=== PATIENT | female | born 1960 | race Caucasian/White ===

== ENCOUNTER 2018-02-06 12:26 | Emergency (ER) | payer OTHER ==
[2018-02-06 12:34] VITALS: RESP 18
--- NOTE | 2018-02-06 13:34 | ED ---
Skin/Abscess/FB HPI - General Source: patient, RN notes reviewed, old records reviewed Mode of arrival: wheelchair Limitations: no limitations <Nikki Acosta - Last Filed: 02/09/18 11:18> <Brenda Fonseca - Last Filed: 02/09/18 21:13> - General Chief complaint: Skin/Abscess/Foreign Body Stated complaint: Leg Redness Time Seen by Provider: 02/06/18 12:43 - History of Present Illness Initial comments: This is a 57-year-old female presents emergency Department with chief complaint of left ankle pain and redness and swelling for the past 4 days. Patient states that she is here on vacation. She originally is from [place]. She had a long flight coming here as well as had multiple car trips for the past week visiting her family and traveling to [facility]. Patient reports that she initially thought the area on her leg with a scheduled bite. She is concerned due to the increased redness and spreading that it may possibly be a blood clot. She denies any chest pain or shortness of breath. Denies any pain with range of motion of the foot or ankle. No falls or trauma to the leg. She denies any history of blood clots. Patient also has had a recent right humerus ORIF due to a fracture 6 weeks ago. She is still currently in a sling and her right arm. (Nikki Acosta) - Related Data Home Medications Medication Instructions Recorded Confirmed Acetaminophen Tab [Tylenol Tab] 1,000 mg PO Q6HR PRN 02/06/18 02/06/18 Aspirin 81 mg PO DAILY 02/06/18 02/06/18 Cetirizine HCl [Zyrtec] 10 mg PO DAILY 02/06/18 02/06/18 Lisinopril [Prinivil] 5 mg PO DAILY 02/06/18 02/06/18 Simvastatin [Zocor] 10 mg PO DAILY 02/06/18 02/06/18 Previous Rx's Medication Instructions Recorded Doxycycline [Vibramycin] 100 mg PO Q12HR 10 Days 02/06/18 Allergies Allergy/AdvReac Type Severity Reaction Status Date / Time Iodinated Contrast- Oral and Allergy Rash/Hives Verified 02/06/18 12:35 IV Dye Penicillins Allergy Rash/Hives Verified 02/06/18 12:35 Sulfa (Sulfonamide Allergy Rash/Hives Verified 02/06/18 12:35 Antibiotics) morphine AdvReac Vomiting Verified 02/06/18 12:36 Opioids - Morphine Analogues AdvReac Vomiting Verified 02/06/18 12:36 Review of Systems ROS Other: All systems not noted in ROS Statement are negative. <Nikki Acosta - Last Filed: 02/09/18 11:18> ROS Other: All systems not noted in ROS Statement are negative. <Brenda Fonseca - Last Filed: 02/09/18 21:13> ROS Statement: Those systems with pertinent positive or pertinent negative responses have been documented in the HPI. Past Medical History Past Medical History: CVA/TIA, Hyperlipidemia, Hypertension Additional Past Medical History / Comment(s): seasonal allergies History of Any Multi-Drug Resistant Organisms: None Reported Past Surgical History: Orthopedic Surgery Additional Past Surgical History / Comment(s): rt humerus Past Psychological History: No Psychological Hx Reported, Depression Smoking Status: Never smoker Past Alcohol Use History: Occasional Past Drug Use History: None Reported <KarlaNikki - Last Filed: 02/09/18 11:18> General Exam Limitations: no limitations General appearance: alert, in no apparent distress Head exam: Present: atraumatic, normocephalic, normal inspection Eye exam: Present: normal appearance, PERRL, EOMI. Absent: scleral icterus, conjunctival injection, periorbital swelling ENT exam: Present: normal exam, mucous membranes moist Neck exam: Present: normal inspection. Absent: tenderness, meningismus, lymphadenopathy Respiratory exam: Present: normal lung sounds bilaterally. Absent: respiratory distress, wheezes, rales, rhonchi, stridor Cardiovascular Exam: Present: regular rate, normal rhythm, normal heart sounds. Absent: systolic murmur, diastolic murmur, rubs, gallop, clicks GI/Abdominal exam: Present: soft, normal bowel sounds. Absent: distended, tenderness, guarding, rebound, rigid Extremities exam: Present: normal inspection, full ROM, normal capillary refill. Absent: tenderness, pedal edema, joint swelling, calf tenderness Left Lower Leg exam: Present: normal inspection, full ROM Ankle exam: Absent: normal inspection (Patient has surrounding erythema over the lateral malleolus towards the mid calf.) Foot/Toe exam: Present: normal inspection, full ROM Neurovascular tendon exam: Present: no vascular compromise Gait: observed and normal Back exam: Present: normal inspection Neurological exam: Present: alert, oriented X3, CN II-XII intact Psychiatric exam: Present: normal affect, normal mood Skin exam: Present: warm, dry, intact, normal color. Absent: rash <Nikki Acosta - Last Filed: 02/09/18 11:18> <Brenda Fonseca - Last Filed: 02/09/18 21:13> - General Exam Comments Initial Comments: Patient is a 57-year-old female. Alert and oriented. Appears in no acute distress. (Nikki Acosta) Vital Signs 02/06/18 02/06/18 12:30 14:59 Temperature 97.2 F L 99.5 F Pulse Rate 84 75 Respiratory 18 18 Rate Blood Pressure 109/62 120/65 O2 Sat by Pulse 97 95 Oximetry Medical Decision Making - Radiology Data Radiology results: report reviewed <Nikki Acosta - Last Filed: 02/09/18 11:18> <Brenda Fonseca - Last Filed: 02/09/18 21:13> - Medical Decision Making This is a 57-year-old female presents emergency Department with chief complaint of left ankle pain and redness and swelling for the past 4 days. Patient states that she is here on vacation. She originally is from [place]. She had a long flight coming here as well as had multiple car trips for the past week visiting her family and traveling to [facility]. Patient reports that she initially thought the area on her leg with a scheduled bite. Patient does have some mild erythema over medial lower leg. Normal pulse, sensation. No ecchymosis or severe swelling. US is negative for DVT. At this time will treat the patient for cellulitis, with doxycycline as she has multiple allergy. Discussed repeat US and PCP follow up. REturn parameters discussed. (Nikki Acosta) The patient was seen and evaluated independently by the mid-level provider. I was present and available in the emergency department to evaluate the patient, we did discuss this patient's evaluation and treatment. I was not asked to and apparently evaluate this patient. I agree with the workup and disposition as documented in the note. (Brenda Fonseca) - Radiology Data No ultrasound evidence for acute DVT in the left lower extremity. (Nikki Acosta) Disposition Is patient prescribed a controlled substance at d/c from ED?: No When asked, does pt state using other controlled substances?: No If prescribed controlled substance>3 days was MAPS reviewed?: No If opioid is for acute pain is fill amount 7 days or less?: No If Rx opioid, was Start Talking consent form obtained?: No Time of Disposition: 14:26 <Nikki Acosta - Last Filed: 02/09/18 11:18> <Brenda Fonseca - Last Filed: 02/09/18 21:13> Clinical Impression: Cellulitis Disposition: HOME SELF-CARE Condition: Good Instructions: Cellulitis (ED) Additional Instructions: Patient has a follow-up with primary care physician. If the area of redness swelling increases please return or go to nearest medical facility for further treatment. The antibiotic as prescribed. Return to emergency department if any alarming signs or symptoms occur. Prescriptions: Doxycycline [Vibramycin] 100 mg PO Q12HR 10 Days Referrals: None,Stated [Primary Care Provider] - 1-2 days
--- NOTE | 2018-02-06 13:50 | US ---
EXAMINATION TYPE: US venous doppler duplex LE LT DATE OF EXAM: 02/06/2018 12:57 PM COMPARISON: NONE CLINICAL HISTORY: Pain. Left lower leg swelling SIDE PERFORMED: Left TECHNIQUE: The lower extremity deep venous system is examined utilizing real time linear array sonog tristin with graded compression, doppler sonography and color-flow sonography. VESSELS IMAGED: External Iliac Vein (EIV) Common Femoral Vein Deep Femoral Vein Greater Saphenous Vein * Femoral Vein Popliteal Vein Small Saphenous Vein * Proximal Calf Veins (* superficial vessels) Left Leg: Appears negative for DVT Grayscale, color doppler, spectral doppler imaging performed of the deep veins of the left lower extr emity. There is normal flow, compressibility, vascular waveforms. IMPRESSION: No ultrasound evidence for acute DVT in the left lower extremity.
[2018-02-06 15:00] VITALS: BP 120/65; PULSE 75; TEMP 99.5
== END 2018-02-06 14:59 | disposition home or self-care (01) ==
LOC: EC 12:26
DX: L03.116 Cellulitis of left lower limb (principal); E78.5 Hyperlipidemia, unspecified; I10 Essential (primary) hypertension; Z86.73 Personal history of transient ischemic attack (TIA), and cerebral infarction without residual deficits; Z79.82 Long term (current) use of aspirin; Z79.899 Other long term (current) drug therapy; Z88.0 Allergy status to penicillin; Z88.2 Allergy status to sulfonamides; Z88.5 Allergy status to narcotic agent; Z91.041 Radiographic dye allergy status
CPT/HCPCS: 99284

== ENCOUNTER 2018-02-10 09:30 | Emergency (ER) | payer OTHER ==
[2018-02-10] MEDS ORDERED: LEVOFLOXACIN 500 MG TAB PO STA (10:25)
--- NOTE | 2018-02-10 10:25 | ED ---
Extremity Problem HPI - General Chief complaint: Extremity Problem,Nontraumatic Stated complaint: cellulitis Time Seen by Provider: 02/10/18 09:37 Source: patient, RN notes reviewed Mode of arrival: ambulatory Limitations: no limitations - History of Present Illness Initial comments: This is a 57-year-old female who presents to the emergency department with chief complaint of left lower extremity cellulitis. Patient states that she was seen here in the emergency department on February 06 and diagnosed with cellulitis. She has a multitude of allergies to antibiotics so was started on doxycycline. An ultrasound venous doppler duplex was obtained at that time and was negative for an acute DVT. Patient states that she was told to return to the emergency department if redness spread beyond the pen border that was applied to the area of redness. Patient states when she woke up this morning the redness had spread down a little bit to her ankle. Patient denies any fevers or chills, chest pain shortness breath, abdominal pain, nausea or vomiting, numbness or tingling. Patient states she is visiting from [place] and would prefer to not be admitted here in the hospital. She states that she wants to get back to [place] as soon as possible. She states that her flight does sleep tomorrow but is looking for a sooner flight. - Related Data Home Medications Medication Instructions Recorded Confirmed Acetaminophen Tab [Tylenol Tab] 1,000 mg PO Q6HR PRN 02/06/18 02/06/18 Aspirin 81 mg PO DAILY 02/06/18 02/06/18 Cetirizine HCl [Zyrtec] 10 mg PO DAILY 02/06/18 02/06/18 Lisinopril [Prinivil] 5 mg PO DAILY 02/06/18 02/06/18 Simvastatin [Zocor] 10 mg PO DAILY 02/06/18 02/06/18 Azelastine HCl [Astepro] 1 spray NASAL BID 02/10/18 02/10/18 Multivitamin,Therapeutic [Thera] 1 tab PO DAILY 02/10/18 02/10/18 Sodium Chloride [Sanders] 1 spray EA NOSTRIL DAILY 02/10/18 02/10/18 Previous Rx's Medication Instructions Recorded Doxycycline [Vibramycin] 100 mg PO Q12HR 10 Days 02/06/18 Levofloxacin [Levaquin] 500 mg PO DAILY #4 tab 02/10/18 Allergies Allergy/AdvReac Type Severity Reaction Status Date / Time ampicillin Allergy Rash/Hives Verified 02/10/18 10:11 clindamycin Allergy Rash/Hives Verified 02/10/18 10:11 Iodinated Contrast- Oral and Allergy Rash/Hives Verified 02/10/18 10:11 IV Dye lactase Allergy Rash/Hives Verified 02/10/18 10:11 nitrofurantoin Allergy Rash/Hives Verified 02/10/18 10:11 Penicillins Allergy Rash/Hives Verified 02/10/18 10:11 Sulfa (Sulfonamide Allergy Rash/Hives Verified 02/10/18 10:11 Antibiotics) tree nut [Nut] Allergy Anaphylaxis Verified 02/10/18 10:11 acetaminophen [From [place]] AdvReac Vomiting Verified 02/10/18 10:11 hydrocodone [From [place]] AdvReac Vomiting Verified 02/10/18 10:11 morphine AdvReac Vomiting Verified 02/10/18 10:11 Opioids - Morphine Analogues AdvReac Vomiting Verified 02/10/18 10:11 Review of Systems ROS Statement: Those systems with pertinent positive or pertinent negative responses have been documented in the HPI. ROS Other: All systems not noted in ROS Statement are negative. Past Medical History Past Medical History: CVA/TIA, Hyperlipidemia, Hypertension Additional Past Medical History / Comment(s): seasonal allergies History of Any Multi-Drug Resistant Organisms: None Reported Past Surgical History: Orthopedic Surgery Additional Past Surgical History / Comment(s): rt humerus Past Psychological History: No Psychological Hx Reported, Depression Smoking Status: Never smoker Past Alcohol Use History: Occasional Past Drug Use History: None Reported General Exam - General Exam Comments Initial Comments: General: Awake and alert, well-developed; in no apparent distress. HEENT: Head atraumatic, normocephalic. Pupils are equal, round and reactive to light. Extraocular movements intact. Oropharynx moist without erythema or exudate. Neck: Supple. Normal ROM. Cardiovascular: Regular rate and rhythm. No murmurs, rubs or gallops. Chest symmetrical. Respiratory: Lungs clear to auscultation bilaterally. No wheezes, rales or rhonchi. Normal respiratory effort with no use of accessory muscles. Musculoskeletal: Patient's right arm is in a sling from a previous arm fracture. Normal range of motion of all other extremities. There is mild redness, swelling to the medial left ankle. No significant warmth. Pedal pulses are 2+ equal and palpable bilaterally. No calf tenderness. Skin: Venus, warm and dry. Neurological: Alert and oriented x3. CN II-XII grossly intact. Speech is fluent and answers are appropriate. No focal neuro deficits. Psychiatric: Normal mood and affect. No overt signs of depression or anxiety noted. Limitations: no limitations Course Vital Signs 02/10/18 09:31 Temperature 97.9 F Pulse Rate 75 Respiratory 18 Rate Blood Pressure 131/86 O2 Sat by Pulse 97 Oximetry Medical Decision Making - Medical Decision Making This is a 57-year-old female who presents to the emergency department with chief complaint of left lower extremity cellulitis. Patient has been taking doxycycline for the past 4 days for cellulitis. She was told to return to the emergency department if the redness spread beyond the pen border. Patient states that when she woke up this morning she noticed some spreading of redness down the ankle. On physical examination, there is mild swelling and redness with no significant warmth to the medial left ankle. Patient is neurovascularly intact. This case was discussed with attending physician, Dr. Treadwell who also evaluated the patient. Patient will be started on Levaquin on top of the doxycycline. Recommended following up with her primary care provider when she returns home. Patient is in agreement with plan and voices understanding. Vital signs are stable and she is in acute distress. She will be discharged home at this time. All questions answered. Disposition Clinical Impression: Cellulitis Disposition: HOME SELF-CARE Condition: Good Instructions: Cellulitis (ED) Additional Instructions: Please take medications as prescribed. Please follow up with primary care provider within 1-2 days. Return to emergency department if symptoms should worsen or any concerns arise. Prescriptions: Levofloxacin [Levaquin] 500 mg PO DAILY #4 tab Is patient prescribed a controlled substance at d/c from ED?: No Referrals: None,Stated [Primary Care Provider] - 1-2 days Time of Disposition: 10:28
[2018-02-10 11:07] VITALS: BP 114/71; PULSE 64; RESP 16; TEMP 97.6
== END 2018-02-10 11:12 | disposition home or self-care (01) ==
LOC: EC 09:30
DX: L03.116 Cellulitis of left lower limb (principal); E78.5 Hyperlipidemia, unspecified; I10 Essential (primary) hypertension; Z86.73 Personal history of transient ischemic attack (TIA), and cerebral infarction without residual deficits; Z79.82 Long term (current) use of aspirin; Z79.899 Other long term (current) drug therapy; Z88.1 Allergy status to other antibiotic agents; Z91.041 Radiographic dye allergy status; Z91.011 Allergy to milk products; Z88.0 Allergy status to penicillin; Z88.2 Allergy status to sulfonamides; Z91.018 Allergy to other foods; Z88.6 Allergy status to analgesic agent; Z88.5 Allergy status to narcotic agent
CPT/HCPCS: 99282